=== PATIENT | male | born 1995 | race Caucasian/White ===

== ENCOUNTER 2017-10-22 19:12 | Inpatient (IN) ==
[2017-10-22] MEDS ORDERED: 0.9 % Sodium Chloride 1,000 ML IVC ONE (19:24)
[2017-10-22] MEDS ORDERED: *HR* LORazepam 2 MG/ML VIAL IVP ONE (19:25)
--- NOTE | 2017-10-22 19:25 | Emergency Department Note ---
Disposition Clinical Impression: Paresthesia, Viral meningitis Headache Qualifiers: Headache type: unspecified Headache chronicity pattern: acute headache Intractability: not intractable Qualified Code(s): R51 - Headache Disposition: Admitted As Inpatient Condition: Fair Time of Disposition: 23:00 General Adult HPI - General Chief complaint: ED Psychiatric Symptoms Stated complaint: psych Time Seen by Provider: 10/22/17 19:17 Source: patient Limitations: no limitations Nursing Notes Reviewed: Yes Vital Signs Reviewed: Yes - History of Present Illness HPI Narrative: Patient is a 22-year-old male who presents to [facility] ED with a chief complaint of generalized numbness and headache. States he has been having right-sided neck pain for the last several days and then the headache worsened today. States he got home from work and could not sit still and he had generalized numbness all over his body. When his mother saw him states he could not formulate words and was having difficulty with his speech. Upon his presentation into the emergency department, he is able to converse though he seems a little slow. Family states he has not yet at his baseline. Denies any alcohol or illicit drug use. Onset (ago): Just CT TECHNOLOGIST Location: head Radiation: neck Pain Severity: severe Pain Scale: 10 Quality: aching Consistency: Worsening Improves with: nothing Worsens with: nothing Associated symptoms: Reports: confusion, headaches. Denies: chest pain, cough, nausea/vomiting, shortness of breath, weakness Treatments Prior to Arrival: none - Related Data Allergies Allergy/AdvReac Type Severity Reaction Status Date / Time No Known Allergies Allergy Verified 10/22/17 19:13 All systems ED: reviewed and negative except as stated. Past Medical History - Past Medical History Attestation: Yes The following information was validated with the patient. Source: patient Medical history: Reports: non-contributory Psychiatric history: Reports: no psych history - Social History Smoking Status: Current every day smoker Smokeless Tobacco Status: No Alcohol use: Reports: occasionally Drug use: Reports: none Physical Exam - General Limitations: no limitations General appearance: alert, in no apparent distress - Head Head exam: atraumatic, normocephalic, normal inspection - Eye Eye exam: Present: normal appearance, PERRL, EOMI - ENT ENT exam: normal exam, normal oropharynx, mucous membranes moist - Neck Neck exam: Present: normal inspection, full ROM, trachea midline - Chest Chest inspection: Present: normal inspection, symmetric chest wall rise - Respiratory Respiratory exam: Present: normal lung sounds bilaterally - Cardiovascular Cardiovascular exam: Present: regular rate, normal rhythm, normal heart sounds - Abdominal Exam Abdominal exam: Present: soft, Non-Tender. Absent: tenderness, distention, guarding, rebound, rigidity - Extremities Exam Extremities exam: Present: normal inspection, full ROM. Absent: tenderness, pedal edema - Back Exam Back exam: Present: normal inspection, full ROM. Absent: tenderness - Neurological Exam Neurological exam: Present: alert, oriented X3, CN II-XII intact. Absent: motor sensory deficit - Expanded Neurological Exam Patient oriented to: Present: person, place, time Speech: Present: fluid speech Cranial nerves: EOM function (II, III, IV, ): Normal, facial sensation (V): Normal, facial palsy (VII): Normal, spinal accessory function (XI): Normal, tongue deviation (XII): Normal Cerebellar function: finger to nose: Normal Motor strength - LUE: 5/5 Motor strength - RUE: 5/5 Sensory exam upper extremity: light touch: Normal Sensory exam lower extremity: light touch: Normal Coma Scale Eye Opening: Spontaneous Coma Scale Motor Response: Obeys Commands Coma Scale Verbal Response: Oriented Coma Scale Total: 15 Course Course Narrative: Patient seen and examined. Patient complaining of generalized paresthesias. Due to patient appearing so anxious, suspect anxiety attack initially. Liter of fluids ordered along with Ativan. When family arrived, they stated he was not at his baseline mental status. Though his neurologic exam is normal for me , they would like to have a CT of the head. This was ordered. Compazine and Benadryl ordered for the headache. - Reevaluation(s) Reevaluation #1: Family called me back into the room and stated his headache was much worse. Patient was writhing on the bed complaining of the worst headache of his life. CT head appears unremarkable. Due to the severe head and neck pain at this time , we will go ahead and get a CTA of the neck and head to rule out vertebral artery dissection. Patient is afebrile, however due to his not being at normal mental status, we will go ahead and set up for lumbar puncture to evaluate for meningitis/subarachnoid hemorrhage. Time: 21:45 Reevaluation #2: CTA of the head and neck were unremarkable. I did perform a lumbar puncture and CSF was sent for analysis. I received a call back from the lab stating he had a critical elevated total nucleated cells as well as total protein. Suspect viral meningitis. However we will go ahead and cover for bacterial meningitis as well. IV Rocephin, vancomycin, acyclovir ordered. We will admit to hospitalist service for viral meningitis. I discussed with Dr. Kimbrough who has accepted patient for admission. She would like neurology consult as well. I discussed with neurologist Dr. Dinh who will see the patient in consultation. Time: 23:00 Vital Signs Temperature 98.2 F 10/22/17 19:15 Pulse Rate 96 10/22/17 19:15 Respiratory Rate 20 10/22/17 19:15 Blood Pressure 148/80 10/22/17 19:15 O2 Sat by Pulse Oximetry 96 10/22/17 19:15 Temperature 98.2 F 10/23/17 01:33 Pulse Rate 62 10/23/17 05:09 Respiratory Rate 10 10/23/17 05:09 Blood Pressure 127/80 10/23/17 01:33 O2 Sat by Pulse Oximetry 95 10/23/17 05:09 Oxygen Delivery Oxygen Delivery Room Air Procedures - Lumbar Puncture Consent Obtained: written consent Time Out Performed: Yes Patient Position: upright Local Anesthetic: lidocaine 1% Amount of anesthesia used (mL): 5 Spinal Needle Gauge: 20G Interspace Used: L3-L4 Fluid Initially Obtained: clear Complications: Need to have other Practitioner Attempt Medical Decision Making - Medical Records Medical records reviewed: Yes I reviewed the patient's medical records. - Lab Data Lab results reviewed: Yes I reviewed the patient's lab results. Result diagrams: 10/22/17 21:57 10/22/17 21:57 Lab Results 10/22/17 10/22/17 10/22/17 Range/Units 20:10 20:10 21:57 WBC 7.2 (4.3-11.1) K/mcL RBC 4.92 (4.19-5.50) M/mcL Hgb 14.7 (12.9-16.9) g/dL Hct 42.6 (37.5-50.1) % MCV 86.6 (83.0-100.0) fL MCH 29.9 (28.0-33.3) pg MCHC 34.5 (31.6-35.5) g/dL RDW 13.2 (11.5-14.5) % Plt Count 213 (140-400) K/mcL MPV 10.2 (9.4-12.4) fL Immature Gran % 0.6 (0-4) % Seg Neutrophils % 53.1 % Lymphocytes % 37.5 % Monocytes % 6.4 % Eosinophils % 2.0 % Basophils % 0.4 % Neutrophils # 3.8 (1.6-8.9) K/mcL Lymphocytes # 2.7 (0.6-4.6) K/mcL Monocytes # 0.5 (0.0-1.3) K/mcL Eosinophils # 0.1 (0.0-0.6) K/mcL Basophils # 0.0 (0.0-0.2) K/mcL Sodium (136-145) mEq/L Potassium (3.5-5.1) mEq/L Chloride (98-107) mEq/L Carbon Dioxide (23-29) mEq/L BUN (6-20) mg/dL Creatinine (0.70-1.30) mg/dL Est GFR ( Amer) (> 60) Est GFR (Non-Af Amer) (> 60) BUN/Creatinine Ratio (6-26) Glucose (70-105) mg/dL POC Glucose (70-99) mg/dL Calculated Osmolality (280-300) Calcium (8.6-10.3) mg/dL Urine Color Yellow (Yellow) Urine Clarity Clear (Clear) Urine pH 6.5 (5.0-8.0) pH Units Ur Specific [place] 1.011 (1.010-1.025) Urine Protein Negative (Neg-Trace) mg/dL Urine Glucose (UA) Normal (Normal) mg/dL Urine Ketones Negative (Negative) mg/dL Urine Blood Negative (Negative) Urine Nitrite Negative (Negative) Urine Bilirubin Negative (Negative) Urine Urobilinogen Normal (Normal) mg/dL Ur Leukocyte Esterase Negative (Negative) Ur Culture Indicated? NO (NO) CSF Volume mL CSF Appearance (Clear) CSF Color (Colorless) CSF RBC (0.000 - 0.002) M/mcL CSF Tot Nucleated Cells (0-5) TNC/mcL CSF Seg Neutrophils CSF Band Neutrophils % CSF Lymphocytes % % CSF Monocytes % % CSF Eosinophils % CSF Basophils % CSF Other Cells % CSF Glucose (40-70) mg/dL CSF Xanth Comm (Not Observe) CSF Total Protein (15-45) mg/dL Urine Opiates Screen Negative (Rucsza=960) ng/mL Ur Barbiturates Screen Negative (Bxuhaw=288) ng/mL Ur Phencyclidine Scrn Negative (Cutoff=25) ng/mL Ur Amphetamines Screen Negative (Xpatbs=3822) ng/mL U Benzodiazepines Scrn Negative (Mmknmg=068) ng/mL Urine Cocaine Screen Negative (Cutoff= 300) ng/mL U Marijuana (THC) Screen Negative (Cutoff = 50) ng/mL 10/22/17 10/22/17 10/23/17 Range/Units 21:57 23:00 01:05 WBC (4.3-11.1) K/mcL RBC (4.19-5.50) M/mcL Hgb (12.9-16.9) g/dL Hct (37.5-50.1) % MCV (83.0-100.0) fL MCH (28.0-33.3) pg MCHC (31.6-35.5) g/dL RDW (11.5-14.5) % Plt Count (140-400) K/mcL MPV (9.4-12.4) fL Immature Gran % (0-4) % Seg Neutrophils % % Lymphocytes % % Monocytes % % Eosinophils % % Basophils % % Neutrophils # (1.6-8.9) K/mcL Lymphocytes # (0.6-4.6) K/mcL Monocytes # (0.0-1.3) K/mcL Eosinophils # (0.0-0.6) K/mcL Basophils # (0.0-0.2) K/mcL Sodium 139 (136-145) mEq/L Potassium 4.0 (3.5-5.1) mEq/L Chloride 107 (98-107) mEq/L Carbon Dioxide 28 (23-29) mEq/L BUN 14 (6-20) mg/dL Creatinine 0.91 (0.70-1.30) mg/dL Est GFR ( Amer) > 60 (> 60) Est GFR (Non-Af Amer) > 60 (> 60) BUN/Creatinine Ratio 15 (6-26) Glucose 97 (70-105) mg/dL POC Glucose 98 (70-99) mg/dL Calculated Osmolality 288 (280-300) Calcium 9.4 (8.6-10.3) mg/dL Urine Color (Yellow) Urine Clarity (Clear) Urine pH (5.0-8.0) pH Units Ur Specific [place] (1.010-1.025) Urine Protein (Neg-Trace) mg/dL Urine Glucose (UA) (Normal) mg/dL Urine Ketones (Negative) mg/dL Urine Blood (Negative) Urine Nitrite (Negative) Urine Bilirubin (Negative) Urine Urobilinogen (Normal) mg/dL Ur Leukocyte Esterase (Negative) Ur Culture Indicated? (NO) CSF Volume 4.0 mL CSF Appearance Clear (Clear) CSF Color Colorless (Colorless) CSF RBC < 0.002 (0.000 - 0.002) M/mcL CSF Tot Nucleated Cells 341 H* (0-5) TNC/mcL CSF Seg Neutrophils Test Not Performed CSF Band Neutrophils % Test Not Performed CSF Lymphocytes % 99.0 % CSF Monocytes % 1.0 % CSF Eosinophils % Test Not Performed CSF Basophils % Test Not Performed CSF Other Cells % Test Not Performed CSF Glucose 57 (40-70) mg/dL CSF Xanth Comm Not Observed (Not Observe) CSF Total Protein > 200 H (15-45) mg/dL Urine Opiates Screen (Uhcsdv=448) ng/mL Ur Barbiturates Screen (Fvcovp=043) ng/mL Ur Phencyclidine Scrn (Cutoff=25) ng/mL Ur Amphetamines Screen (Gvgmeh=0958) ng/mL U Benzodiazepines Scrn (Tmatrw=263) ng/mL Urine Cocaine Screen (Cutoff= 300) ng/mL U Marijuana (THC) Screen (Cutoff = 50) ng/mL - Radiology Data Radiology results reviewed: Yes I reviewed the patient's radiology results. Head CT 10/22/17 20:06 IMPRESSION: No acute intracranial abnormality. D/ / Mike Koroma MD / Mike Koroma MD Interpreting Provider: Mike Koroma MD Attestation Statement - Attestation Attestation: I examined this patient and my medical decision-making was reviewed with the Resident Physician. I agree with the documented findings, disposition and treatment plan as described except to the extent set forth below. Findings consistent with viral meningitis. Lumbar puncture obtain a confirms likely viral meningitis. We will start antibiotics pending return of cultures. Patient was admitted in stable condition.
[2017-10-22 20:23] LABS: Bilirubin,Urine Negative (Negative); Blood,Urine Negative (Negative); Clarity,Urine Clear (Clear); Color,Urine Yellow (Yellow); Glucose,Urine (UA) Normal (Normal); Ketones,Urine Negative (Negative); Leukocyte Esterase,Urine Negative (Negative); Nitrite,Urine Negative (Negative); PH,Urine 6.5 pH Units (5.0-8.0); Protein,Urine Negative (Neg-Trace); Specific Gravity,Urine 1.011 (1.010-1.025); Urobilinogen,Urine Normal (Normal)
[2017-10-22] MEDS ORDERED: Prochlorperazine 10 MG/2 ML VIAL IVP ONE (20:33)
[2017-10-22 20:46] LABS: Amphetamine Screen,Urine Negative ng/mL (Cutoff=1000); Barbiturate Screen,Urine Negative ng/mL (Cutoff=200); Benzodiazepines Screen,Urine Negative ng/mL (Cutoff=200); Cannabinoid Screen,Urine Negative ng/mL (Cutoff = 50); Cocaine Screen,Urine Negative ng/mL (Cutoff= 300); Opiate Screen,Urine Negative ng/mL (Cutoff=300); Phencyclidine Screen,Urine Negative ng/mL (Cutoff=25)
[2017-10-22] MEDS ORDERED: Isovue-370 500 ML INFUS..BTL IV ONE (21:02)
[2017-10-22] MEDS ORDERED: *HR* FentaNYL (PF) 100 MCG/2 ML VIAL IVP ONE (21:05)
[2017-10-22 22:25] LABS: BUN/Creatinine Ratio 15 (6-26); Blood Urea Nitrogen 14 mg/dL (6-20); Calcium 9.4 mg/dL (8.6-10.3); Carbon Dioxide 28 mEq/L (23-29); Chloride 107 mEq/L (98-107); Glucose 97 mg/dL (70-105); Osmolality,Calculated 288 (280-300); Sodium 139 mEq/L (136-145); eGFR For African Americans > 60 (> 60); eGFR For Non-African Americans > 60 (> 60)
[2017-10-22 22:29] LABS: Basophils % 0.4 %; Eosinophils # 0.1 K/mcL (0.0-0.6); Hematocrit 42.6 % (37.5-50.1); Hemoglobin 14.7 g/dL (12.9-16.9); Immature Granulocytes % 0.6 % (0-4); Lymphocytes # 2.7 K/mcL (0.6-4.6); Lymphocytes % 37.5 %; Mean Corpuscular HGB Conc 34.5 g/dL (31.6-35.5); Mean Corpuscular Hemoglobin 29.9 pg (28.0-33.3); Mean Corpuscular Volume 86.6 fL (83.0-100.0); Mean Platelet Volume 10.2 fL (9.4-12.4); Monocytes # 0.5 K/mcL (0.0-1.3); Monocytes % 6.4 %; Neutrophils # 3.8 K/mcL (1.6-8.9); Platelet Count 213 K/mcL (140-400); Red Blood Count 4.92 M/mcL (4.19-5.50); Red Cell Distribution Width 13.2 % (11.5-14.5); Segmented Neutrophils % 53.1 %
[2017-10-22 23:24] LABS: Red Blood Cell,CSF < 0.002 M/mcL
[2017-10-22 23:48] LABS: Appearance,CSF Clear (Clear); Glucose,CSF 57 mg/dL (40-70); Total Protein,CSF > 200 mg/dL (15-45)
[2017-10-22] MEDS ORDERED: cefTRIAXone 2,000 MG in 0.9 % Sodium Chloride Mini Bag 100 ML IVPB ONE (23:56)
[2017-10-22] MEDS ORDERED: Acyclovir 500 MG in D5% in Water 100 ML IVPB ONE (23:56)
[2017-10-23] MEDS ORDERED: Naloxone 0.4 MG/ML INJ IVP PRN (05:09)
[2017-10-23] MEDS ORDERED: Acetaminophen 325 MG TABLET PO PRN (05:09)
--- NOTE | 2017-10-23 07:14 | Internal Med History&Physical ---
Date of Encounter: 10/23/17 Time of Encounter: 03:00 Internal Medicine - H&P: HPI Chief complaint: Headache Admitted From: Home Plans for Post Hospital Care: Home History of present illness: Mr. Arthur is a 22 year old male presented to ER for severe headache with neck rigidity. Patient has no significant past medical history. Patient to present to ER for headache, which is very severe. Patient also has stiff neck for weeks. Patient has generalized weakness, cannot walk. Patient has recently visited [place]. Patient denies fever. In the emergency room , meningitis was suspected. Lump puncture has been done, which supportive meningitis, most likely viral but cannot exclude bacterial. Patient was treated with Vanco, Rocephin, and acyclovir. Patient feels symptoms has improved after treatment. Patient was admitted for further management. Past Med Surg Social Fam HX - Past Medical History Medical history: non-contributory Psychiatric history: no psych history - Past Surgical History Surgical History: no surgical history - Social History Smoking Status: Current every day smoker Smokeless Tobacco Status: No Alcohol use: occasionally Drug use: none - Family History Mother History Unknown: Yes Internal Medicine - H&P: Meds 3 Allergy/AdvReac Type Severity Reaction Status Date / Time No Known Allergies Allergy Verified 10/22/17 19:13 All Systems PM: A 10-system review of systems was performed and is negative for pertinent findings except as documented above in the HPI. - Constitutional Vitals: Temp Pulse Resp BP Pulse Ox 98.2 F 62 10 127/80 95 10/23/17 01:33 10/23/17 05:09 10/23/17 05:09 10/23/17 01:33 10/23/17 05:09 General appearance: Present: A&O X 3, no acute distress, answers questions appropriately - Head Head exam: Present: atraumatic, normocephalic - Eye Eye exam: Present: PERRL, conjuntiva pink, sclera anicteric Pupils: Present: PERRL - Neck Neck exam general surgery: Present: supple, trachea midline. Absent: lymphadenopathy - Respiratory Respiratory exam: Present: CTAB. Absent: accessory muscle use, rales, rhonchi, wheezes - Cardiovascular Cardiovascular exam: Present: RRR, +S1, +S2. Absent: diastolic murmur, gallop, rubs, systolic murmur - GI/Abdominal GI/Abdominal exam: Present: normal bowel sounds, soft, no peritoneal signs. Absent: distended, tenderness - Extremities Exam Extremities exam: Present: warm, radial pulses palpable and symmetrical. Absent : calf tenderness, cyanotic, pedal edema - Neurological Exam Neurological exam: Present: CN II-XII intact, oriented X3, no focal deficits. Absent: pronater drift, facial droop, speech deficit - Skin Skin exam: Present: dry, intact Internal Med - H&P Results - Labs CBC & Chem 7: 10/22/17 21:57 10/22/17 21:57 - Assessment and plan (1) Meningitis Current Visit: Yes Status: Acute Assessment and plan: Patient has headache and stiff neck. LP results shows elevated WBC, protein, but normal glucose level. Support meningitis. Most likely viral but bacterial meningitis cannot completely exclude. - Continue closely monitor patient. - Continue Vanco, Rocephin, and acyclovir. - Neurology consult called by ER - Follow up CSF culture and HSV and enterovirus PCR result. (2) DVT prophylaxis Current Visit: Yes Status: Acute Assessment and plan: Patient is young and ambulating well. No anticoagulations placed at this point. - Time Spent With Patient Total time spent is greater than 50% in coordination of care (as documented) at patient's floor/unit and/or counseling patient: 40 minutes Greater than 35 minutes
[2017-10-23] MEDS ORDERED: Acyclovir 500 MG in D5% in Water 100 ML IVPB SCH (08:00)
--- NOTE | 2017-10-23 10:03 | Event Note ---
Date of Encounter: 10/23/17 Time of Encounter: 09:55 S: Patient had no acute events after admission. He states that he is doing better. He is alert and oriented x 3. He has no complaints at this time. Headache and neck pain are absent at this time. I spoke with mother and girlfriend at bedside about plan of care. O: Gen - Awake, alert, oriented x 3, no acute distress HEENT - NCAT, PERRLA, EOMI, hearing grossly intact, oropharynx benign CV - RRR, normal S1 and S2, no M/R/G, no BLE edema Resp - Normal WOB, CTAB, no W/R/R GI - Soft, NT/ND, no masses, normal bowel sounds, no HSP Neuro - No focal deficits, strength and sensation intact, CN grossly intact Skin - Warm, dry, no rashes/lesions/ulcers Psych - Normal mood and affect, no agitation/anxiety/depression A/P: 1) Meningitis - Likely viral. IGM ordered. Follow up on CSF studies. Neurology consulted; appreciate input. Continue IV vancomycin, IV rocephin, and IV acyclovir. Looks to be improving. No neurological deficits at this time. Consider ID consult. Continue neurochecks Q4H. 2) DVT Prophylaxis - Start SCDs.
[2017-10-23] MEDS: Acyclovir 850 MG in D5% in Water 250 ML IVPB SCH ×2 (11:38→16:48)
[2017-10-23] MEDS: cefTRIAXone 2,000 MG in 0.9 % Sodium Chloride Mini Bag 100 ML IVPB SCH (12:58)
--- NOTE | 2017-10-23 16:03 | Neurology - Consult Note ---
Date of Encounter: 10/23/17 Time of Encounter: 15:58 Assessment and Plan (1) Viral meningitis Current Visit: Yes Status: Acute I agree with the assessment data likely dealing with a viral meningitis. However, the confusion is not common with uncomplicated viral meningitis. I agree with maintaining antibiotics until the cultures are completed. Until we get PCR back I will also recommend discharging him home on acyclovir twice a day dosing for 10-14 days. No further testing is necessary at this juncture. I will reevaluate him at your request. History of Present Illness HPI: The chart was reviewed, the patient was seen and examined. Mr. Arthur is a 22 year old male who is being seen for neurologic consultation secondary to viral meningitis. He states that yesterday evening he felt fine all day until he arrived home from work. Shortly thereafter he began to experience significant neck pain and severe headache. He felt numbness all over his body. Apparently he had some confusion and had some difficulty speaking. Not certain whether not this is because of the intense pain because of encephalopathy/encephalitis. Ultimately however he was brought to [facility] where a stat workup was performed including CT of the head which was negative, CTA of the head was negative, CTA of the neck was negative. Lumbar puncture however revealed 341 WBCs 99% were lymphocytes. Total protein was greater than 200 glucose was normal. There was no evidence of hemorrhage or xanthochromia present. Urine tox screen was negative. Gram stain was negative for white blood cells or bacteria. CSF culture is pending. Patient was started on vancomycin, acyclovir, and ceftriaxone. His clinical status is markedly improved. He is awake and alert sitting up in bed. Mentation is normal. Neurologic exam is normal. Currently he is without a headache. Past Med Surg Social Fam HX - Past Medical History Medical history: non-contributory Psychiatric history: no psych history - Past Surgical History Surgical History: no surgical history - Social History Smoking Status: Current every day smoker Smokeless Tobacco Status: No Alcohol use: occasionally Drug use: none - Family History Mother History Unknown: Yes Medications and Allergies No Known Home Drugs 10/23/17 [History] 3 Allergy/AdvReac Type Severity Reaction Status Date / Time No Known Allergies Allergy Verified 10/22/17 19:13 All Systems: The remainder of the systems were reviewed and are negative Review of Systems: The balance of the systems review is negative. Physical Examination - Vital Signs Vital Signs: Initial Vital Signs Temp Pulse Resp BP Pulse Ox 98.2 F 96 20 148/80 96 10/22/17 19:15 10/22/17 19:15 10/22/17 19:15 10/22/17 19:15 10/22/17 19:15 - Neurologic Detailed motor examination: full strength in all major muscle groups Motor examination - right side: 09/01: deltoids, biceps, triceps, wrist flexion, wrist extension, gastroenterology manager, hip flexors, tibialis Anterior, quadriceps, toe extension (EHL), plantarflexion Motor examination - left side: 09/01: deltoids, biceps, triceps, wrist flexion, wrist extension, hip flexors, gastroenterology manager, quadriceps, tibialis Anterior, toe extension (EHL), plantarflexion Mental Status Examination: awake, alert, oriented to person, oriented to place, oriented to time, follows commands appropriately, answers questions appropriately, no agnosia, no aphasia, no aproxia Cranial nerve examination: PERRL, EOMI, visual tabares intact, corneal reflexes brisk symmetrically, sensory to face intact, mastication intact, no facial asymmetry is present, no dysarthria, hearing is intact symmetrically, soft palate elevates bilaterally upon phonation, gag reflex intact, flexes SCM and trapezius muscles symmetrically with full power, tongue protrudes midline, no atrophy or facial fasiculations present Cerebellar examination: no dysmetria, performs finger to nose and heel to isngh symmetrically without ataxia, no gait ataxia, no truncal ataxia, no difficulty with rapid alternating movements Results - Laboratory Findings CBC and BMP: 10/22/17 21:57 10/22/17 21:57 Abnormal lab findings: Abnormal lab results CSF Tot Nucleated Cells 341 TNC/mcL (0-5) H* 10/22/17 23:00 CSF Total Protein > 200 mg/dL (15-45) H 10/22/17 23:00 Consult Discharge Plan - Plan Referrals: Devyn York DO [Primary Care Provider] -
[2017-10-23] MEDS ORDERED: Aminoglycoside Consult 1 EACH MC ONE (17:16)
[2017-10-24] MEDS: Acyclovir 850 MG in D5% in Water 250 ML IVPB SCH ×3 (00:20→15:31)
[2017-10-24] MEDS: cefTRIAXone 2,000 MG in 0.9 % Sodium Chloride Mini Bag 100 ML IVPB SCH ×2 (00:20→12:56)
[2017-10-24 05:06] LABS: Basophils # 0.1 K/mcL (0.0-0.2); Basophils % 0.8 %; Eosinophils # 0.2 K/mcL (0.0-0.6); Eosinophils % 3.2 %; Hematocrit 43.2 % (37.5-50.1); Immature Granulocytes % 0.3 % (0-4); Lymphocytes # 2.6 K/mcL (0.6-4.6); Lymphocytes % 39.1 %; Mean Corpuscular HGB Conc 34.7 g/dL (31.6-35.5); Mean Corpuscular Hemoglobin 30.6 pg (28.0-33.3); Mean Corpuscular Volume 88.2 fL (83.0-100.0); Mean Platelet Volume 10.5 fL (9.4-12.4); Monocytes # 0.5 K/mcL (0.0-1.3); Monocytes % 7.2 %; Neutrophils # 3.2 K/mcL (1.6-8.9); Platelet Count 190 K/mcL (140-400); Red Cell Distribution Width 13.2 % (11.5-14.5); Segmented Neutrophils % 49.4 %
[2017-10-24 05:26] LABS: BUN/Creatinine Ratio 13 (6-26); Blood Urea Nitrogen 12 mg/dL (6-20); Calcium 8.9 mg/dL (8.6-10.3); Carbon Dioxide 26 mEq/L (23-29); Chloride 108 mEq/L (98-107); Glucose 106 mg/dL (70-105); Osmolality,Calculated 290 (280-300); Potassium 3.7 mEq/L (3.5-5.1); Sodium 140 mEq/L (136-145); eGFR For African Americans > 60 (> 60); eGFR For Non-African Americans > 60 (> 60)
--- NOTE | 2017-10-24 07:56 | Neurology Progress Note ---
Date of Encounter: 10/24/17 Time of Encounter: 07:54 Assessment and Plan (1) Viral meningitis Current Visit: Yes Status: Acute I feel that we are dealing with a simple uncomplicated viral meningitis. CSF cultures are negative at 24 hours. Patient is back to his normal baseline function he is headache free and afebrile. I would recommend discharging him home on by mouth acyclovir twice a day dosing for the next 10 days or so depending PCR cultures. Subjective Interval history: The chart was reviewed, patient was seen and examined. Patient laying in bed resting, nurse is in room attending to patient. Patient is alert and oriented no acute distress. Vital signs are stable he is afebrile. Denies headaches, has no new issues or complaints. Culture was negative at 24 hours. Objective - Constitutional Vitals: Temp Pulse Resp BP Pulse Ox 97.9 F 88 16 116/71 97 10/24/17 07:33 10/24/17 07:33 10/24/17 07:33 10/24/17 07:33 10/24/17 07:33 - Neurological Exam Motor Examination: Present: full strength in all major muscle groups Motor examination - right side: 5/5: deltoids, biceps, triceps, wrist flexion, wrist extension, silk crepe machine operator, hip flexors, tibialis Anterior, quadriceps, toe extension (EHL), plantarflexion Motor examination - left side: 5/5: deltoids, biceps, triceps, wrist flexion, wrist extension, hip flexors, silk crepe machine operator, quadriceps, tibialis Anterior, toe extension (EHL), plantarflexion Sensation intact: Present: intact Posture: Present: other (No nuchal rigidity..) Reflex and gait examination: intact Mental Status Examination: Present: awake, alert, oriented to person, oriented to place, oriented to time, follows commands appropriately, answers questions appropriately, no agnosia, no aphasia, no aproxia Cranial nerve examination: Present: PERRL, EOMI, visual tabares intact, corneal reflexes brisk symmetrically, sensory to face intact, mastication intact, no facial asymmetry is present, no dysarthria, hearing is intact symmetrically, soft palate elevates bilaterally upon phonation, gag reflex intact, flexes SCM and trapezius muscles symmetrically with full power, tongue protrudes midline, no atrophy or facial fasiculations present Cerebellar examination: Present: no dysmetria, performs finger to nose and heel to singh symmetrically without ataxia, no gait ataxia, no truncal ataxia, no difficulty with rapid alternating movements Results - Laboratory Findings CBC and BMP: 10/24/17 04:30 10/24/17 04:30 Abnormal lab findings: Abnormal lab results Chloride 108 mEq/L (98-107) H 10/24/17 04:30 Glucose 106 mg/dL (70-105) H 10/24/17 04:30 CSF Tot Nucleated Cells 341 TNC/mcL (0-5) H* 10/22/17 23:00 CSF Total Protein > 200 mg/dL (15-45) H 10/22/17 23:00 Consult Discharge Plan - Plan Referrals: Devyn York DO [Primary Care Provider] -
--- NOTE | 2017-10-24 15:53 | Discharge Summary ---
- NOTES TO OUTPATIENT PROVIDER Notes to Outpatient Provider: Follow up with PCP in 2-3 days after discharge. Follow up on final hospital CSF culture results at that time. Date of Encounter: 10/24/17 Time of Encounter: 15:51 - Discharge Diagnosis (1) Meningitis Priority: Primary Status: Acute (2) DVT prophylaxis Priority: Secondary Status: Acute Hospital course: Mr. Arthur is a 22 year old male admitted for severe headache, neck rigidity, and neurological sequelae likely secondary to viral meningitis. CSF studies and culture were ordered after LP in ED. He was started on IV acyclovir, IV rocephin, and IV vancomycin. CSF cultures were negative for 24 hours. CSF studies suggested viral etiology. Neurology was consulted. They felt this was simple uncomplicated viral meningitis, and they recommended 10 day course of acyclovir. Patient states that headache and neurological symptoms have all resolved today. He is back to "normal" and wants to go home. He will be discharged with 8 more days of acyclovir 800 mg PO BID. He will follow up with PCP in 2-3 days after discharge. They can follow up on final hospital CSF culture results. Patient has met maximum benefit of this hospitalization and will be discharged home in stable condition. Discharge discussed with: patient, family, nurse, other (Pharmacist) - Time Spent with Patient Total time spent providing and/or coordinating discharge services: Greater than 30 minutes - Discharge Medications Prescriptions: RX: Acyclovir [Zovirax] 800 mg PO Q12H 8 Days #16 tablet Home Medications: RX: Acyclovir [Zovirax] 800 mg PO Q12H 8 Days #16 tablet 10/24/17 [Rx] Allergies/Adverse Reactions: 3 Allergy/AdvReac Type Severity Reaction Status Date / Time No Known Allergies Allergy Verified 10/22/17 19:13 Date of admission: 10/23/17 05:09 Primary care physician: Rayshawn Matos Consults: Neurology Discharging clinician: Anival Diggs Anticipated date of discharge: 10/24/17 - Constitutional Vitals: Temp Pulse Resp BP Pulse Ox 98.4 F 71 18 121/67 97 10/24/17 11:26 10/24/17 11:26 10/24/17 11:26 10/24/17 11:26 10/24/17 11:26 General appearance: Present: cooperative, A&O X 3, pleasant, no acute distress, answers questions appropriately - Head Head exam: Present: atraumatic, normal inspection, normocephalic - Eye Eye exam: Present: EOMI, PERRL. Absent: conjunctival injection, nystagmus, scleral icterus - Respiratory Respiratory exam: Present: CTAB. Absent: accessory muscle use, rales, rhonchi, wheezes Additional comments: Normal WOB - Cardiovascular Cardiovascular exam: Present: RRR, +S1, +S2. Absent: diastolic murmur, gallop, rubs, systolic murmur Additional comments: No BLE edema - GI/Abdominal GI/Abdominal exam: Present: normal bowel sounds, soft. Absent: distended, hepatomegaly, mass, splenomegaly, tenderness - Neurological Exam Neurological exam: Present: alert, CN II-XII intact, oriented X3, no focal deficits, strengths equal and symetr throughout. Absent: motor sensory deficit , facial droop, speech deficit - Psychiatric Psychiatric exam: Present: normal affect, normal mood. Absent: agitated, anxious, depressed - Skin Skin exam: Present: dry, intact, warm. Absent: cyanosis, rash - Patient Status Disposition: Home, Self-Care Condition: Good Functional capacity at discharge: independent ambulation Overall status at discharge: patient is progressing back to baseline - Discharge Instructions Follow Up With: Devyn York DO [Primary Care Provider] - 11/05/17 12:00 pm Additional Instructions: Follow up with PCP in 2-3 days after discharge. Follow up on final hospital CSF culture results at that time. - Diet and Activity Activity: resume usual activities as tolerated Diet: advance to your usual diet - VTE Reasons for not Prescribing Prophylaxis: Treatment not Indicated - Low risk for VTE Documentation of Mechanical Device: Intermittent pneumatic compression device
[2017-10-24 16:11] VITALS: BP 125/65
[2017-10-25 02:30] LABS: HSV Source CSF
[2017-10-25 07:58] LABS: HSV 2 Glycoprotein G IgG CSF 0.1 IV (<=0.89)
[2017-10-25 08:06] LABS: Enterovirus RNA Qual (PCR) NOT DETECTED
== END 2017-10-24 17:17 | disposition home or self-care (01) | DRG 76 ==
LOC: ICNU 19:12 → EMEROO 19:12 → ICNU 10-23 00:50 → 2NNU 10-23 18:21
PROVIDERS: ADMIT Internal Medicine Nephrology; ATTEND Internal Medicine Nephrology